=== PATIENT | male | born 2005 | race Caucasian/White ===

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

== ENCOUNTER 2025-02-05 11:48 | Emergency (ER) | payer OTHER, SELFPAY ==
--- NOTE | ~2025-02-05 | XR_ITS ---
EXAMINATION: XR sacrum coccyx min 2V DATE: 02/05/2025 12:18 INDICATION: Tailbone pain post fall TECHNIQUE: Frontal, angled frontal and lateral views of the sacrum and coccyx were obtained. COMPARISON: None. FINDINGS: Bone alignment is normal. No fracture. Sacral arches are intact. Transitional lumbosacral segment, sacralized on the right and lumbarized on the right. Bilateral hip and sacroiliac joint spaces are normal. IMPRESSION: 1. No acute osseous abnormality. Reviewed, dictated and finalized at location A.
[2025-02-05 11:58] VITALS: BP 113/59; PULSE 64; RESP 16; TEMP 36.9; O2SAT 100
--- NOTE | 2025-02-05 12:07 | ED_ITS ---
HPI - Fall General Chief Complaint: Fall Stated Complaint: fall at work Time Seen by Provider: 02/05/25 11:56 Patient presents to the [facility] with complaints of tailbone pain radiating in to the left butt cheek left hamstring that began just prior to arrival at [facility]. 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 patient denies his head or loss consciousness. No medication around these attempted for symptoms. Denies urinary symptoms, numbness, or tingling. Related Data Home Medications ?Medication ?Instructions ?Recorded ?Confirmed ?Last Taken ?Type Lactobacillus 1 cap PO DAILY 01/01/2203/07 Unknown History acidophil,plantar-Bifido no.7 15 billion cell capsule (up4 Probiotics Adult) albuterol sulfate 90 mcg/actuation 1 inh inhalation Q4 H PRN Shortness 01/19/22 03/16/22 Unknown History aerosol inhaler Of Breath buspirone 7.5 mg tablet 7.5 mg PO DAILY 02/09/2202/25 Unknown History allopurinol 100 mg tablet mg 02/05/25 Unknown History amitriptyline 10 mg tablet mg 02/05/25 Unknown Histor y anastrozole 1 mg tablet mg 02/05/25 Unknown History trazodone 50 mg tablet mg 02/05/25 Unknown History ursodiol 250 mg tablet mg 02/05/25 Unknown History Allergies Allergy/AdvReac Type Severity Reaction Status Date / Time No Known Allergies Allergy Mild Verified 02/05/25 11:51 Review of Systems Constitutional: Constitutional: Reports as per HPI, Denies chills, Denies fatigue, Denies fever(s) and Denies weakness Eyes: Eyes: Reports no additional eye complaints ENT: Reports system reviewed and no additional complaints, except as documented Cardiovascular: Cardiovascular: Reports no additional cardiovascular complaints Respiratory: Respiratory: Reports no additional respiratory complaints Gastrointestinal: Gastrointestinal: Reports no additional gastrointestinal complaints Genitourinary: Genitourinary: Reports no additional male genitourinary complaints Musculoskeletal: Musculoskeletal: Reports as per HPI, Reports back pain and Reports muscle cramps Integumentary/Breasts: Skin/Breast: Reports as per HPI, Denies erythema, Denies rash and Denies skin ulcer Neurologic: Reports as per HPI, Denies numbness and Denies weakness Psychiatric: Psychiatric: Reports no additional psychiatric complaints Endocrine: Endocrine: Reports no additional endocrine complaints Hematologic/Lymphatic: Hematologic/Lymphatic: Reports no additional hematologic/lymphatic complaints Allergic/Immunologic: Allergic/Immunologic: Reports no additional allergic/immunologic complaints [facility] Past Medical History Medical History (Updated 02/05/25 @ 12:37 by NICOLA Morgan-C) Abdominal cramping Irritable bowel syndrome Marijuana smoker Anorexia Weight loss Diarrhea Migraines Anxiety Asthma Allergies Surgical History Surgical History History of placement of ear tubes History of tonsillectomy and adenoidectomy Family History Family History Mother Asthma Depression Brain cancer Social History Social History Smoking status: Never smoker Alcohol intake: never Substance use: current Substance use type: marijuana Other substance usage details: SMOKES MARIJUANA Last use: ROUTINELY Living arrangements: with family Spiritual care concerns: No Exam Const: General: healthy appearing and no acute distress Nutritional Appearance: well nourished Orientation/consciousness: patient oriented x3 Limitations: no limitations Resp: Effort & Inspection: normal respiratory effort Auscultation: clear to auscultation bilaterally Cardio: Rate: regular rate Rhythm: regular rhythm Back/Spine/Pelvis: Back: no CVA tenderness Other: No lumbar vertebral tenderness. Sacral tenderness noted. SI joint tenderness left with buttock tenderness. No erythema, ecchymosis, edema or rash noted. Straight leg raise is negative Skin: General skin exam: normal color Rashes: no rashes Wounds: no wounds Neuro: General: patient oriented x3 and moves all extremities Speech: normal speech Gait exam (Neuro): gait abnormal (limited by pain ) Psych: Mental Status: mental status grossly normal Affect: normal affect Attitude: cooperative Course Course Level of Care: Express Care Visit Vital Signs Vital signs: Vital Signs Temperature 98.4 F 02/05/25 11:58 Pulse Rate 64 02/05/25 11:58 Respiratory Rate 16 02/05/25 11:58 Blood Pressure 113/59 L 02/05/25 11:58 Pulse Oximetry 100 02/05/25 11:58 Oxygen Delivery Room Air 02/05/25 11:58 Temperature 98.4 F 02/05/25 11:58 Pulse Rate 64 02/05/25 11:58 Respiratory Rate 16 02/05/25 11:58 Blood Pressure 113/59 L 02/05/25 11:58 Pulse Oximetry 100 02/05/25 11:58 Oxygen Delivery Room Air 02/05/25 11:58 MDM - Fall MDM Narrative Medical decision making narrative: x-rays of sacrum ordered. No fracture noted by myself awaiting radiologist reading The patient was evaluated by myself in the express care. History is obtained from patient who is an independent historian and physical exam was performed. Available medical records were reviewed at this time. Exam findings show no acute concerns or changes; patient is non-toxic appearing and is in no distress. Patient is appropriate for outpatient treatment and follow-up. I have evaluated and discussed social determinants of health with the patient that could potentially impact subsequent diagnosis and treatment plans. Differential diagnosis and treatment plan were discussed with the patient. Patient agrees with discussion and after shared medical decision making agrees with plan of care. All questions were answered to the patient's satisfaction. Differential Diagnosis Differential diagnosis: Likely other ( contusion, fracture, dislocation, muscle strain, sciatic) Medical Records Attestation: I reviewed the patient's medical records. Imaging Data Attestation: I personally reviewed and interpreted this imaging study as follows: My impression: no fracture noted Radiologist's impression: IMPRESSION: 1. No acute osseous abnormality. Reviewed, dictated and finalized at location A. Discharge Plan Discharge Clinical Impression: Coccyx contusion Patient Disposition: Home Condition: Stable Instructions: Antibiotic Form, Contusion in Adults (ED) Additional Instructions: your x-rays are negative for fracture abnormality Express Care today. This is likely muscular in nature recommended resting for 2 days then begin applying heat for 20 minutes then gentle range of motion or massaged then ice for 20 minute several times per day. may use the sling as needed to get extra support take ibuprofen or naproxen as directed consistently this will help with inflammation. May use the muscle relaxers as needed this can make you drowsy do not drive, drink alcohol or operate heavy machinery while taking this medication. Follow-up with primary care physician within the next week if symptoms not improved if you notice any significant numbness, tingling, weakness, or neck pain follow-up with emergency room for immediate evaluation. Patient Language: Spanish Prescriptions: New naproxen 500 mg tablet 500 mg PO BID PRN (Reason: pain) Qty: 20 0RF methocarbamol 750 mg tablet 750 mg PO TID PRN (Reason: Pain, Mild) Qty: 30 0RF No Action anastrozole 1 mg tablet trazodone 50 mg tablet allopurinol 100 mg tablet amitriptyline 10 mg tablet ursodiol 250 mg tablet albuterol sulfate 90 mcg/actuation HFA aerosol inhaler 1 inh inhalation Q4H PRN (Reason: Shortness Of Breath) up4 Probiotics Adult 15 billion cell Capsule 1 cap PO DAILY buspirone 7.5 mg tablet 7.5 mg PO DAILY dicyclomine 10 mg capsule See Rx Instructions .ROUTE .COMPLEX Qty: 270 2RF Dose Instruction: TAKE 1 CAPSULE BY MOUTH THREE TIMES A DAY NEEDED FOR CRAMPING Rx Instructions: TAKE 1 CAPSULE BY MOUTH THREE TIMES A DAY NEEDED FOR CRAMPING Follow-up/Referrals: Keith Garza MD [Primary Care Provider, Pediatrics] Stand Alone Forms: Work/School Release IP Time of Disposition: 12:38
== END 2025-02-05 12:45 | disposition home or self-care (01) ==
PROVIDERS: Emergency Provider Nurse Practitioner Family; PCP Pediatrics
DX: S30.0XXA Contusion of lower back and pelvis, initial encounter (principal); Z79.899 Other long term (current) drug therapy; W01.0XXA Fall on same level from slipping, tripping and stumbling without subsequent striking against object, initial encounter; Y92.89 Other specified places as the place of occurrence of the external cause; Y99.0 Civilian activity done for income or pay
CPT/HCPCS: 72220; 99213; G0463

== ENCOUNTER 2025-02-09 11:33 | Emergency (ER) | payer OTHER, SELFPAY ==
[2025-02-09 11:40] VITALS: BP 121/61; PULSE 77; RESP 16; TEMP 36.8; O2SAT 100
--- NOTE | 2025-02-09 11:41 | ED_ITS ---
HPI - Back Pain/Injury General Chief Complaint: Back Pain/Injury Stated Complaint: Lower Back Pain, Fall Injury Time Seen by Provider: 02/09/25 11:42 Source: patient, RN notes reviewed and old records reviewed Mode of arrival: ambulatory Limitations: no limitations History of Present Illness HPI Narrative: Patient presents to the [facility] with complaints of continued tailbone pain that is no longer radiating. 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 patient denies his head or loss consciousness. Denies urinary symptoms, numbness, or tingling. Patient requesting 2 more days off of work Related Data Home Medications ?Medication ?Instructions ?Recorded ?Confirmed ?Last Taken ?Type Lactobacillus 1 cap PO DAILY 01/01/2203/07 Unknown History acidophil,plantar-Bifido no.7 15 billion cell capsule (up4 Probiotics Adult) albuterol sulfate 90 mcg/actuation 1 inh inhalation Q4 H PRN Shortness 01/19/22 03/16/22 Unknown History aerosol inhaler Of Breath buspirone 7.5 mg tablet 7.5 mg PO DAILY 02/09/2202/25 Unknown History allopurinol 100 mg tablet mg 02/05/25 Unknown History amitriptyline 10 mg tablet mg 02/05/25 Unknown Histor y anastrozole 1 mg tablet mg 02/05/25 Unknown History trazodone 50 mg tablet mg 02/05/25 Unknown History ursodiol 250 mg tablet mg 02/05/25 Unknown History Allergies Allergy/AdvReac Type Severity Reaction Status Date / Time No Known Allergies Allergy Mild Verified 02/09/25 11:49 Review of Systems Review of Systems: All systems reviewed & are unremarkable except as noted in HPI and below Constitutional: Constitutional: Reports no additional constitutional complaints ENT: Reports system reviewed and no additional complaints, except as documented Cardiovascular: Cardiovascular: Reports no additional cardiovascular complaints, Denies chest pain and Denies dyspnea Respiratory: Respiratory: Reports no additional respiratory complaints, Denies chest congestion, Denies cough and Denies dyspnea Musculoskeletal: Musculoskeletal: Reports as per HPI Integumentary/Breasts: Skin/Breast: Reports system reviewed and no additional complaints, except as docu PMFSH Past Medical History Medical History Abdominal cramping Irritable bowel syndrome Marijuana smoker Anorexia Weight loss Diarrhea Migraines Anxiety Asthma Allergies Surgical History Surgical History History of placement of ear tubes History of tonsillectomy and adenoidectomy Family History Family History Mother Asthma Depression Brain cancer Social History Social History Smoking status: Never smoker Alcohol intake: never Substance use: current Substance use type: marijuana Other substance usage details: SMOKES MARIJUANA Last use: ROUTINELY Living arrangements: with family Spiritual care concerns: No Comments At the time of my signature, I reviewed and agree with the nursing past medical, surgical, social, and family history. There is no relevant family history pertinent to the patient complaint. Exam Const: General: cooperative, healthy appearing, comfortable, no acute distress, well developed, alert and well nourished Nutritional Appearance: well nourished Orientation/consciousness: patient oriented x3 Limitations: no limitations HENMT: Head: normal to inspection Eyes: General: appearance normal, both eyes and all related structures Alignment and Position: alignment normal Neck: Neck: normal visual inspection, full ROM, no lymphadenopathy and no meningeal signs Chest: Chest palpation & inspection: normal inspection of the chest Resp: Effort & Inspection: normal respiratory effort and able to speak in complete sentences Auscultation: clear to auscultation bilaterally, no crackles, no rales, no rhonchi and no wheezes Cardio: Rate: regular rate Back/Spine/Pelvis: Back: no CVA tenderness, No warmth, No ecchymosis and back tenderness (Sacrum) Skin: General skin exam: normal color and no rashes or lesions noted Neuro: General: patient oriented x3, gait normal, moves all extremities and no meningeal signs Cognition (Neuro): normal cognition Speech: normal speech Gait exam (Neuro): Normal gait present Extrem: General: normal to inspection, full ROM, capillary refill normal and normal gait Psych: Appearance: grossly normal and well kempt Mental Status: mental status grossly normal Speech and movement: Normal speech and movement present and Clear speech present Affect: normal affect Attitude: cooperative Course Course Level of Care: Express Care Visit Vital Signs Vital signs: Vital Signs Temperature 98.3 F 02/09/25 11:40 Pulse Rate 77 02/09/25 11:40 Respiratory Rate 16 02/09/25 11:40 Blood Pressure 121/61 02/09/25 11:40 Pulse Oximetry 100 02/09/25 11:40 Oxygen Delivery Room Air 02/09/25 11:40 Temperature 98.3 F 02/09/25 11:40 Pulse Rate 77 02/09/25 11:40 Respiratory Rate 16 02/09/25 11:40 Blood Pressure 121/61 02/09/25 11:40 Pulse Oximetry 100 02/09/25 11:40 Oxygen Delivery Room Air 02/09/25 11:40 Reviewed MDM - Back Pain/Injury MDM Narrative Medical decision making narrative: Patient evaluated 4 days ago, after slipping on while. X-ray was negative. Patient reports symptoms have been improving but with like 2 days off of work. Still having soreness. Patient has not followed up work workman's comp provider Patient appropriate for outpatient treatment already has medications Discharge instructions reviewed with patient, as well as provided in writing per nursing staff. The instructions also include specific and strict return/GO TO THE ER as well as f/u information. All questions have been answered, and the patient deny any further questions with discharge and discharge plan. Some parts of this dictation were generated by voice recognition software and may contain typographical and/or grammatical inaccuracies. Differential Diagnosis Differential diagnosis: Likely lumbar radiculopathy, sciatica and other (Contusion) Critical Care Time Critical Care Time Critical Care Time: No Discharge Plan Discharge Clinical Impression: Coccyx contusion, Fall from slipping Patient Disposition: Home Condition: Stable Instructions: Antibiotic Form, Contusion in Adults (ED) Additional Instructions: Continue to ice the area every 2-3 hours for 15-20 minutes while awake. Continue taking anti-inflammatories and muscle relaxer as needed Most importantly is following up with workmen's Comp as directed by your company Patient Language: Lithuanian Prescriptions: No Action anastrozole 1 mg tablet trazodone 50 mg tablet allopurinol 100 mg tablet amitriptyline 10 mg tablet ursodiol 250 mg tablet naproxen 500 mg tablet 500 mg PO BID PRN (Reason: pain) Qty: 20 0RF methocarbamol 750 mg tablet 750 mg PO TID PRN (Reason: Pain, Mild) Qty: 30 0RF albuterol sulfate 90 mcg/actuation HFA aerosol inhaler 1 inh inhalation Q4H PRN (Reason: Shortness Of Breath) up4 Probiotics Adult 15 billion cell Capsule 1 cap PO DAILY buspirone 7.5 mg tablet 7.5 mg PO DAILY dicyclomine 10 mg capsule See Rx Instructions .ROUTE .COMPLEX Qty: 270 2RF Dose Instruction: TAKE 1 CAPSULE BY MOUTH THREE TIMES A DAY NEEDED FOR CRAMPING Rx Instructions: TAKE 1 CAPSULE BY MOUTH THREE TIMES A DAY NEEDED FOR CRAMPING Follow-up/Referrals: Keith Garza MD [Primary Care Provider, Pediatrics] Stand Alone Forms: Work/School Release IP Time of Disposition: 12:02
== END 2025-02-09 12:08 | disposition home or self-care (01) ==
PROVIDERS: Emergency Provider Nurse Practitioner; PCP Pediatrics
DX: S30.0XXA Contusion of lower back and pelvis, initial encounter (principal); W01.0XXA Fall on same level from slipping, tripping and stumbling without subsequent striking against object, initial encounter; Y99.0 Civilian activity done for income or pay; J45.909 Unspecified asthma, uncomplicated; F41.9 Anxiety disorder, unspecified; F12.90 Cannabis use, unspecified, uncomplicated
CPT/HCPCS: 99212; G0463

== ENCOUNTER 2025-02-17 10:21 | Emergency (ER) | payer BC, SELFPAY ==
--- NOTE | 2025-02-17 10:25 | ED.GENADULT ---
HPI - General Adult General Chief complaint: Urogenital-Male Stated complaint: Blood In Stool/Male Problems Time Seen by Provider: 02/17/25 10:58 Source: patient and RN notes reviewed Mode of arrival: ambulatory Limitations: no limitations History of Present Illness HPI narrative: 19-year-old male presents with concern for a pulling sensation when he urinates, lower abdominal discomfort and cramping. He reports the symptoms started on Sunday when he had a bowel movement with a streak of blood in it. He denies any blood in his stool since then. He also reports he can feel a small lump in his left testicle. He denies fever, reports chills when he feels the pulling pain in his groin. He denies redness, swelling of his testicles. He denies any penile discharge, denies concern for STDs. He denies burning sensation when he pees, only to pulling sensation. Twelve days ago patient did have a fall and was seen here twice for coccyx pain. Reports that pain is gone but he does still have bruising. He denies any loss of bowel or bladder function, perianal anesthesia, weakness in any extremity. He reports he will not have a sensation to urinate until his bladder is very full and that is urgent. MD complaint: Dysuria Related Data Home Medications ?Medication ?Instructions ?Recorded ?Confirmed ?Last Taken ?Type albuterol sulfate 90 mcg/actuation 1 inh inhalation Q4H PRN Shortness 01/19/22 02/17/25 Unknown History aerosol inhaler Of Breath buspirone 7.5 mg tablet 7.5 mg PO DAILY 02/09/22 02/17/25 Unknown History allopurinol 100 mg tablet mg 02/05/25 Unknown History amitriptyline 10 mg tablet mg 02/05/25 Unknown History trazodone 50 mg tablet mg 02/05/25 Unknown History ursodiol 250 mg tablet mg 02/05/25 Unknown History Allergies Allergy/AdvReac Type Severity Reaction Status Date / Time No Known Allergies Allergy Mild Verified 02/17/25 10:26 Review of Systems Review of Systems: CONSTITUTIONAL: Denies malaise, chills, sweats, or fever. CARDIOVASCULAR: Denies chest pain, palpitations, or edema. RESPIRATORY: Denies cough or dyspnea. GASTROINTESTINAL: Reports lower abdominal pain. Denies nausea, vomiting, diarrhea. Reports 1 episode of blood in his stool GENITOURINARY: Denies dysuria, frequency. Reports urgency, suprapubic pressure, pulling sensation when he urinates. Denies flank pain or hematuria. SKIN: Denies rash or itching. MUSCULOSKELETAL: Denies back pain or myalgia. All systems reviewed & are unremarkable except as noted in HPI and below PMFSH Past Medical History Medical History Abdominal cramping Irritable bowel syndrome Marijuana smoker Anorexia Weight loss Diarrhea Migraines Anxiety Asthma Allergies Surgical History Surgical History History of placement of ear tubes History of tonsillectomy and adenoidectomy Family History Family History Mother Asthma Depression Brain cancer Social History Social History Smoking status: Never smoker Alcohol intake: never Substance use: current Substance use type: marijuana Other substance usage details: SMOKES MARIJUANA Last use: ROUTINELY Living arrangements: with family Spiritual care concerns: No Comments At time of signature, agree with nursing past medical, surgical, social and family history. There is no relevant family history pertinent to the presenting complaint Exam Narrative: GENERAL: Well-appearing, well-nourished, and in no acute distress. HEAD: Normocephalic. EYES: PERRLA, conjunctivae clear. NECK: Supple. No lymphadenopathy CHEST: Clear to auscultation. No respiratory distress. HEART: Regular rate and rhythm. ABDOMEN: Soft, nontender upon palpation, nondistended, no palpable or pulsatile masses, no guarding. No CVA tenderness SKIN: Warm, dry, no rash. NEURO: Alert and oriented x3. PSYCH: Normal mood and affect : Male General Exam: Yes normal external exam Penis: Yes normal penis Meatus: meatus normal Scrotum: scrotum normal Testes: epididymal tenderness Other: No lumps palpable Course Course Emergency Course: Patient is aware of, understands and agrees to treatment plan. Anticipatory guidance given. Patient agrees to follow-up as directed and is aware of reasons to seek care at the emergency department. Portions of this record may have been created with voice recognition software Level of Care: Express Care Visit Vital Signs Vital signs: Reviewed. Medical Decision Making MDM Narrative Medical decision making narrative: I evaluated this patient in the express care. History is obtained from patient who is an independent historian and physical exam was performed.? Available medical records were reviewed. ? Exam findings and relevant testing show no acute concerns or changes; patient is non-toxic appearing and is in no distress. ? Differential diagnosis and treatment plan were discussed with the patient. Patient agrees with discussion and after shared medical decision making agrees with plan of care. All questions were answered to the patient's satisfaction. I advised patient to follow up with his primary care doctor in the next 1-2 days for further evaluation of his symptoms in relation to his recent fall. Patient is appropriate for outpatient treatment and follow-up. Critical Care Time Critical Care Time Critical Care Time: No Discharge Plan Discharge Clinical Impression: Epididymo-orchitis Patient Disposition: Home Condition: Stable Instructions: Antibiotic Form, Epididymo-Orchitis (ED) Additional Instructions: 1) Please follow-up with your primary care doctor in the next 1-2 days for further evaluation of your symptoms after your fall. 2) If you have any worsening of symptoms or any other urgent concerns please go to the ER. 3) Please take medications as prescribed and continue taking your home medications as usual. 4) Please read and follow information included in discharge instructions. Patient Language: Martiniquais Prescriptions: New ciprofloxacin HCl 500 mg tablet 500 mg PO Q12H 7 Days Qty: 14 0RF No Action trazodone 50 mg tablet allopurinol 100 mg tablet amitriptyline 10 mg tablet ursodiol 250 mg tablet naproxen 500 mg tablet 500 mg PO BID PRN (Reason: pain) Qty: 20 0RF methocarbamol 750 mg tablet 750 mg PO TID PRN (Reason: Pain, Mild) Qty: 30 0RF albuterol sulfate 90 mcg/actuation HFA aerosol inhaler 1 inh inhalation Q4H PRN (Reason: Shortness Of Breath) buspirone 7.5 mg tablet 7.5 mg PO DAILY Follow-up/Referrals: Keith Garza MD [Primary Care Provider, Pediatrics] Stand Alone Forms: Work/School Release IP Time of Disposition: 11:06
[2025-02-17 10:32] VITALS: BP 106/57; PULSE 72; RESP 16; TEMP 36.7; O2SAT 98
[2025-02-17 10:54] LABS: EDUAAPPEAR Clear; EDUABILI Negative (Negative); EDUABLOOD Negative (Negative); EDUACOLOR1 Yellow; EDUAGLUCOSE Negative (Negative); EDUAKETONE Negative (Negative); EDUALEUKO Negative (Negative); EDUANITRATE Negative (Negative); EDUAPH 7.0; EDUAPROTEIN Negative (Negative); EDUASPGRAVITY 1.015; EDUAUROBILI 0.2
== END 2025-02-17 11:23 | disposition home or self-care (01) ==
PROVIDERS: Emergency Provider Nurse Practitioner; PCP Pediatrics
DX: N45.3 Epididymo-orchitis (principal); F12.90 Cannabis use, unspecified, uncomplicated; J45.909 Unspecified asthma, uncomplicated; F41.9 Anxiety disorder, unspecified
CPT/HCPCS: 81003; 99213; G0463